=== PATIENT | male | born 1985 | race Caucasian/White ===

== ENCOUNTER 2016-12-22 15:17 | Emergency (ER) | payer SELFPAY ==
[2016-12-22 15:24] VITALS: BP 141/86
== END 2016-12-22 16:45 | disposition left against medical advice (07) ==
LOC: ER 15:17
DX: Z53.9 Procedure and treatment not carried out, unspecified reason (principal); R53.1 Weakness

== ENCOUNTER 2017-05-09 08:15 | Emergency (ER) | payer SELFPAY ==
[2017-05-09] MEDS ORDERED: NORMAL SALINE 1000 ML 1,000 ML IV ONE (09:25)
[2017-05-09 09:37] LABS: ABSOLUTE EOSINOPHILS # (AUTO) 0.2 10^3/uL (0.0-0.6); ABSOLUTE LYMPHOCYTES (AUTO) 1.3 10^3/uL (0.5-4.7); ABSOLUTE MONOCYTES (AUTO) 0.5 10^3/uL (0.1-1.4); ABSOLUTE NEUT (AUTO) 3.4 10^3/uL (1.7-8.2); BASOPHILS % (AUTO) 0.9 % (0-2); EOSINOPHILS % (AUTO) 3.6 % (0-6); HEMATOCRIT 46.9 % (37.9-51.0); HEMOGLOBIN 16.7 g/dL (13.5-17.0); HGB HCT DIFFERENCE 3.2; MEAN CORPUSCULAR HEMOGLOBIN 33.5 pg (27.0-33.4); MEAN CORPUSCULAR HGB CONC 35.5 g/dL (32.0-36.0); MEAN CORPUSCULAR VOLUME 94 fl (80-97); MONOCYTES % (AUTO) 8.6 % (3-13); RED BLOOD COUNT 4.98 10^6/uL (4.35-5.55); RED CELL DISTRIBUTION WIDTH 13.5 % (11.5-14.0); SEGMENTED NEUTROPHILS % (AUTO) 62.9 % (42-78); WHITE BLOOD COUNT 5.5 10^3/uL (4.0-10.5)
[2017-05-09 10:21] LABS: ANION GAP 13 (5-19); BLOOD UREA NITROGEN 5 mg/dL (7-20); CARBON DIOXIDE 24 mmol/L (22-30); CHLORIDE 103 mmol/L (98-107); CREATININE RESULT 0.62 mg/dL (0.52-1.25); GLUCOSE 89 mg/dL (75-110); POTASSIUM 4.1 mmol/L (3.6-5.0); SODIUM 139.8 mmol/L (137-145)
--- NOTE | 2017-05-09 10:29 | ER Document Report ---
ED General - General Chief Complaint: TWITCHING Stated Complaint: POSSIBLE SEIZURE Time Seen by Provider: 05/09/17 08:46 TRAVEL OUTSIDE OF THE [place] IN LAST 30 DAYS: No - HPI Patient complains to provider of: Seizure-like activity Notes: Patient coming in for evaluation of seizure-like activity. Patient states he has a history of seizure disorder however has never had an EEG or seen a neurologist patient is on no antiseizure medication. Patient states seizures started approximately 3 years ago. Patient states that he was in the bathroom today when his noticed him twitching and having a seizure. According to EMS patient was not postictal. Upon my evaluation patient has no complaints. Patient states that his seizures were thought to be brought on by high stress levels patient states he has an appointment meeting today. The nursing notes were reviewed for this patient. - Related Data Allergies/Adverse Reactions: No Known Allergies Allergy (Verified 12/22/16 15:22) Past Medical History - Social History Smoking Status: Current Every Day Smoker Chew tobacco use (# tins/day): No Frequency of alcohol use: Occasional Drug Abuse: Marijuana Family History: Reviewed & Not Pertinent - Past Medical History Cardiac Medical History: Reports: Hx Hypertension Renal/ Medical History: Denies: Hx Peritoneal Dialysis Surgical Hx: Negative - Immunizations Hx Diphtheria, Pertussis, Tetanus Vaccination: No Review of Systems - Review of Systems Constitutional: No symptoms reported EENT: No symptoms reported Cardiovascular: No symptoms reported Respiratory: No symptoms reported Gastrointestinal: No symptoms reported Genitourinary: No symptoms reported Male Genitourinary: No symptoms reported Musculoskeletal: No symptoms reported Skin: No symptoms reported Hematologic/Lymphatic: No symptoms reported Neurological/Psychological: Seizure -: Yes All other systems reviewed and negative Physical Exam - Vital signs Vitals: Temp Pulse Resp BP Pulse Ox 98.4 F 82 15 142/92 H 97 05/09/17 08:33 05/09/17 08:33 05/09/17 08:33 05/09/17 08:33 05/09/17 08:33 Interpretation: Normal - General General appearance: Appears well, Alert - HEENT Head: Normocephalic, Atraumatic Eyes: Normal Pupils: PERRL - Respiratory Respiratory status: No respiratory distress Chest status: Nontender Breath sounds: Normal Chest palpation: Normal - Cardiovascular Rhythm: Regular Heart sounds: Normal auscultation Murmur: No - Abdominal Inspection: Normal Distension: No distension Bowel sounds: Normal Tenderness: Nontender Organomegaly: No organomegaly - Back Back: Normal, Nontender - Extremities General upper extremity: Normal inspection, Nontender, Normal color, Normal ROM , Normal temperature General lower extremity: Normal inspection, Nontender, Normal color, Normal ROM , Normal temperature, Normal weight bearing. No: Ernie's sign - Neurological Neuro grossly intact: Yes Cognition: Normal Orientation: AAOx4 Chris Coma Scale Eye Opening: Spontaneous Chris Coma Scale Verbal: Oriented Warrens Coma Scale Motor: Obeys Commands Chris Coma Scale Total: 15 Speech: Normal Motor strength normal: LUE, RUE, LLE, RLE Sensory: Normal - Psychological Associated symptoms: Normal affect, Normal mood - Skin Skin Temperature: Warm Skin Moisture: Dry Skin Color: Normal Course - Re-evaluation Re-evalutation: 05/09/17 14:19 Unclear patient's seizure activity and history. Highly encouraged patient to follow-up with neurology. Possible breakthrough seizure with known possible seizure disorder and previous neurology evaluation. Now returned to neuro baseline. Labs reviewed. No indication of new or acute process. Patient appears safe for discharge with observation and close outpatient F/U with PCP or neurology. Seizure warnings discussed with patient / family. - Vital Signs Vital signs: Temp Pulse Resp BP Pulse Ox 98.1 F 85 15 143/85 H 97 05/09/17 11:03 05/09/17 11:03 05/09/17 11:03 05/09/17 11:03 05/09/17 11:03 - Laboratory Result Diagrams: 05/09/17 09:20 05/09/17 09:20 Laboratory results interpreted by me: 05/09/17 05/09/17 09:20 09:20 MCH 33.5 H BUN 5 L Discharge - Discharge Clinical Impression: Twitching, possible seizure activity Condition: Good Disposition: HOME, SELF-CARE Instructions: Neurologist, Seizure, Known Epileptic ([facility]) Additional Instructions: Please follow-up with neurology provided for further evaluation of your seizure- like activity. Your lab work shows no signs of significant pathology please follow-up Forms: Return to Work
[2017-05-09 11:03] VITALS: BP 143/85
== END 2017-05-09 11:02 | disposition home or self-care (01) ==
LOC: ER 08:15
DX: R25.3 Fasciculation (principal); F17.200 Nicotine dependence, unspecified, uncomplicated; I10 Essential (primary) hypertension
CPT/HCPCS: 99284; 96360; 36415; 85025; 80048; J7030